=== PATIENT | female | born 1985 | race Caucasian/White ===

== ENCOUNTER → 2020-08-09 | Outpatient (CLI) | payer BC, OTHER ==
[~2020-08-09] MED LIST: DOCUSATE SODIU100 MG PO; IBUPROFEN600 MG PO; LEXAPRO TAB 1010 MG PO; MELOXICAM7.5 MG PO; METOPROLOL SUCC25 MG PO; NAPROXEN250 MG PO; NORCO 5-325 TA1 EACH PO; ROXICODONE TAB 55 MG PO; TRAZODONE HCL50 MG PO; ZOFRAN4 MG PO
[2020-08-09 09:09] LABS: HEMOGLOBIN 10.7 gm/dl (12.3-15.3); RED BLOOD COUNT 4.47 M/UL (4.00-5.10); WHITE BLOOD COUNT 8.2 K/UL (4.5-11.0)
== END ==
LOC: OPSV2 07:51
PROVIDERS: Obstetrics & Gynecology
DX: Z01.812 Encounter for preprocedural laboratory examination (principal); N92.1 Excessive and frequent menstruation with irregular cycle
CPT/HCPCS: 81001; 85025

== ENCOUNTER → 2020-08-11 | Day surgery (SDC) | payer BC, OTHER ==
[~2020-08-11] VITALS: Ht 165.1 cm; Wt 93.9 kg
== END | disposition home or self-care (01) ==
LOC: OR 07:30
DX: N92.1 Excessive and frequent menstruation with irregular cycle (principal); N84.0 Polyp of corpus uteri; R93.89 Abnormal findings on diagnostic imaging of other specified body structures; I10 Essential (primary) hypertension; K21.9 Gastro-esophageal reflux disease without esophagitis; F41.9 Anxiety disorder, unspecified; D64.9 Anemia, unspecified; Z88.5 Allergy status to narcotic agent; Z79.899 Other long term (current) drug therapy
CPT/HCPCS: 84703; J1100; J1885; J2001; J2250; J2405; J2704; J2795; J3010; J7120

== ENCOUNTER → 2020-10-31 | Outpatient (CLI) | payer BC, OTHER | LOC: MAMO 08-23 10:00 → US 08-23 10:30 → MAMO 09-08 13:00 → US 09-08 13:30 → MAMO 10-02 14:30 → US 10-20 10:30 → MAMO 13:25 | DX: N63.13 Unspecified lump in the right breast, lower outer quadrant (principal) | CPT/HCPCS: 76641-LT; 76641-RT; 77066; G0279 ==

== ENCOUNTER 2020-11-02 20:11 | Emergency (ER) | payer BC, OTHER ==
[~2020-11-02 20:11] MED LIST changes: -DOCUSATE SODIU100 MG PO; -IBUPROFEN600 MG PO; -NAPROXEN250 MG PO; -ROXICODONE TAB 55 MG PO; -ZOFRAN4 MG PO
[2020-11-02 21:11] LABS: HEMOGLOBIN 11.8 gm/dl (12.3-15.3); RED BLOOD COUNT 4.53 M/UL (4.00-5.10); WHITE BLOOD COUNT 10.2 K/UL (4.5-11.0)
[2020-11-02 21:31] LABS: BUN/CREATININE RATIO 15 (0-10)
[2020-11-02] MEDS ORDERED: ZOFRAN4 MG PO (23:06)
[2020-11-02] MEDS ORDERED: IBUPROFEN600 MG PO (23:06)
== END 2020-11-02 23:25 | disposition home or self-care (01) ==
LOC: ER1 20:11
PROVIDERS: Physician Assistant
DX: N20.0 Calculus of kidney (principal); Z90.49 Acquired absence of other specified parts of digestive tract
CPT/HCPCS: 80053; 81001; 83605; 83690; 84703; 85025; 96374; 96375; 99284; J1885; J2405; Q9967

== ENCOUNTER → 2021-01-12 | Outpatient (CLI) | payer BC, OTHER ==
[~2021-01-12] MED LIST changes: +DOCUSATE SODIU100 MG PO; +IBUPROFEN600 MG PO; +NAPROXEN250 MG PO; +ROXICODONE TAB 55 MG PO; +ZOFRAN4 MG PO
[2021-01-12 10:51] LABS: HEMOGLOBIN 11.1 gm/dl (12.3-15.3); RED BLOOD COUNT 4.32 M/UL (4.00-5.10); WHITE BLOOD COUNT 8.2 K/UL (4.5-11.0)
== END ==
LOC: OPSV2 09:00
PROVIDERS: Obstetrics & Gynecology
DX: Z01.812 Encounter for preprocedural laboratory examination (principal)
CPT/HCPCS: 81001; 85025

== ENCOUNTER 2021-01-16 06:50 | Day surgery (SDC) | payer BC, OTHER ==
[~2021-01-16] VITALS: Ht 162.6 cm; Wt 90.7 kg
[~2021-01-16 06:50] MED LIST changes: -DOCUSATE SODIU100 MG PO; -NAPROXEN250 MG PO; -ROXICODONE TAB 55 MG PO
[2021-01-16] MEDS ORDERED: ROXICODONE TAB 55 MG PO (15:22)
[2021-01-16] MEDS ORDERED: DOCUSATE SODIU100 MG PO (15:22)
[2021-01-16] MEDS ORDERED: NAPROXEN250 MG PO (15:22)
[2021-01-16 15:41] LABS: HEMOGLOBIN 10.1 gm/dl (12.3-15.3)
== END 2021-01-16 17:49 | disposition home or self-care (01) ==
LOC: OR 06:50 → MED SURG 4 14:45 → OR 17:49
PROVIDERS: Obstetrics & Gynecology
PROC: 0UT94ZZ Resection of Uterus, Percutaneous Endoscopic Approach (ICD-10-PCS; 2021-01-16)
PROC: 0UT74ZZ Resection of Bilateral Fallopian Tubes, Percutaneous Endoscopic Approach (ICD-10-PCS; principal; 2021-01-16 07:30)
DX: N80.0 Endometriosis of uterus (principal); N72 Inflammatory disease of cervix uteri; K66.0 Peritoneal adhesions (postprocedural) (postinfection); I10 Essential (primary) hypertension; D64.9 Anemia, unspecified; Z20.822 Contact with and (suspected) exposure to COVID-19; Z88.5 Allergy status to narcotic agent; Z91.048 Other nonmedicinal substance allergy status
CPT/HCPCS: 36415; 84702; 85014; 85018; J0690; J1100; J1170; J1885; J2001; J2250; J2405; J2704; J2710; J2795; J3010; J7120; U0002